=== PATIENT | female | born 1965 | race Caucasian/White ===

== ENCOUNTER 2021-01-01 16:51 | Emergency (ER) | payer BC, OTHER ==
--- OUTSIDE RECORDS SUMMARY | 2021-01-01 16:54 | XMS REPORT | Continuity of Care Document ---
:[address] [facility] t Address [address] [place] [address] Care Team Providers Name Role Phone ETTA Primary Care Physician Unavailable MERLINE Attending Clinician Unavailable Octavio Attending Clinician MERLINE Attending Clinician Unavailable CHELSIE Attending Clinician Unavailable ROSA M Attending Clinician Unavailable TIFFANI Attending Clinician Unavailable ELEANOR ELLSWORTH Attending Clinician Unavailable ERWIN Attending Clinician Unavailable Enrrique Hood Attending Clinician Madison La Attending Clinician ELOINA Attending Clinician Unavailable RUTH Attending Clinician Unavailable EVENS Attending Clinician Unavailable ANA Attending Clinician Unavailable AILEEN Attending Clinician Unavailable Payers Payer Name Policy Type Policy Number Effective Date Expiration Date S ource [place] POS [id number] 2015 00:00:00 Problems Condition Condition Condition Status Onset Resolution Last Treating Co mments Source Name Details Category Date Date Treatment Clinician Date M25.511 - Diagnosis Active 2020-02-25 Memoria PAIN IN 02-15 11:21:00 l RIGHT M25.511 00:01: Jace SHOULDER - PAIN IN 00 RIGHT SHOULDER Active 02/16/2020 MH OPID [place] Gastroesop Problem Active 2020-12-22 M emoria hageal 22:24:38 l reflux [place] disease Gastroesop (disorder) hageal reflux disease (disorder) Active Problem 12/22/2020 [facility] Group, OPID Jace Hyperlipid Problem Active 2020-12-22 M emoria emia 22:24:38 l (disorder) Anthony n Hyperlipid emia (disorder) Active Problem 12/22/2020 Medical Group, MARCOS Bruceann Hypertensi Problem Active 2020-12-22 M emoria ve 22:24:38 l disorder, Jace systemic Hypertensi arterial ve (disorder) disorder, systemic arterial (disorder) Active Problem 12/22/2020 Medical Group, OPID Jace Prediabete Problem Active 2020-01-15 M emoria s 00:41:51 l (finding) [place] Prediabete s (finding) Active Problem 01/15/2020 Medical Group Impaired Problem Active 2020-12-22 Mem oria fasting 22:24:38 l glycaemia Impaired Her rodríguez (disorder) fasting glycaemia (disorder) Active Problem 12/22/2020 Medical Group, MARCOS Mccormick Basal cell Basal cell Problem Active U nivers carcinoma carcinoma ity of of skin of skin [place] Physici ans Dermatofib Dermatofib Problem Active U nivers kathy kathy ity of [place] Physici ans Closed Closed Problem Active Univers displaced displaced ity of fracture fracture [place] of fifth of fifth Physic i metatarsal metatarsal an s bone of bone of right right foot, foot, initial initial encounter encounter Poison marin Poison marin Problem Active U nivers dermatitis dermatitis it y of [place] Physici ans Hand Hand Problem Active Univers dermatitis dermatitis it y of [place] Physici ans History of History of Problem Active U nivers basal cell basal cell it y of carcinoma carcinoma [place] of skin of skin Physici ans Solar Solar Problem Active Univers lentigo lentigo ity of [place] Physici ans Telangiect Telangiect Problem Active U nivers griffin griffin ity of [place] Physici ans Acne Acne Problem Active Univers vulgaris vulgaris ity of [place] Physici ans Nevus of Nevus of Problem Active Unive rs multiple multiple ity of sites of sites of [place] trunk trunk Physici ans Allergies, Adverse Reactions, Alerts Allergy Allergy Status Severity Reaction(s) Onset Inactive Treating Comm ents Source Name Type Date Date Clinician No Known DA Active U 2018-05 [facility]19 [place] [facility] No Known DA Active U 2017-05 [facility] Allergie 2-04 [place] s 00:00[facility]ope [facility] No Known DA Active U 2017-05 [facility] Allergie - [place] s 00:00: Orthope [facility] Family History Family Member Diagnosis Comments Start Date Stop Date Source Mother Family history of Univers y [facility] Skin cancer Physicians Social History Social Habit Start Date Stop Date Quantity Comments Source Social History 2016-05-02 2016-05-02 [facility] 17:12:27 17:12:27 Medications Ordered Filled Start Stop Current Ordering Indication Dosage Frequency Signature Comments Components Source Medication Medication Date Date Medication? Clinician (SIG) Name Name amLODIPine Yes = 1 tab, Mem oria 2.5 mg oral 7-21 PO, Daily, l tablet 13:47: # 90 tab, Anthony n 00 3 Refill(s), Pharmacy: [email or web address] #[id number], covering for Dr Cunningham; MUST follow up amLODIPine Yes = 1 tab, Mem oria 2.5 mg oral 7-14 PO, Daily, l tablet 20:31: # 30 tab, Anthony n 00 0 Refill(s), Pharmacy: [email or web address] #[id number], covering for Dr Cunningham; MUST follow up lansoprazol Yes 30 mg = 1 M emoria e 30 MG 8-26 cap, PO, l Enteric 17:23: Daily, # Anthony n Coated 00 90 cap, 0 Capsule Refill(s), [Prevacid] Pharmacy: [email or web address] #[id number], 172.72, cm, 11/19/18 11:00:00 CDT, Height, 67.727, kg, 11/19/18 11:00:00 CDT, Weight amLODIPine Yes = 1 tab, Mem oria 2.5 mg oral 8-26 PO, Daily, l tablet 17:23: # 90 tab, Anthony n 00 3 Refill(s), Pharmacy: [email or web address] #[id number], covering for Dr Cunningham; MUST follow up, 172.72, cm, 11/19/18 11:00:00 CDT, Height, 67.727, kg, 11/19/18 11:00:00 CDT, Weight amLODIPine Yes = 1 tab, Mem oria 2.5 mg oral 8-17 PO, Daily, l tablet 17:41: # 30 tab, Anthony n 00 1 Refill(s), Pharmacy: [facility] #[id number], covering for Dr Cunningham; MUST follow up, 172.72, cm, 11/19/18 11:00:00 CDT, Height, 67.727, kg, 11/19/18 11:00:00 CDT, Weight amLODIPine 2019-0 Yes = 1 tab, Mem oria 2.5 mg oral 7-15 PO, Daily, l tablet 15:14: # 30 tab, Anthony n 00 0 Refill(s), Pharmacy: [email or web address] #[id number], covering for Dr Cunningham; MUST follow up, 172.72, cm, 11/19/18 11:00:00 CDT, Height, 67.727, kg, 11/19/18 11:00:00 CDT, Weight amLODIPine 2019-0 Yes = 1 tab, Mem oria 2.5 mg oral 6-12 PO, Daily, l tablet 13:02: # 30 tab, Anthony n 00 0 Refill(s), Pharmacy: [email or web address] #[id number], covering for Dr Cunningham; MUST follow up, 172.72, cm, 11/19/18 11:00:00 CDT, Height, 67.727, kg, 11/19/18 11:00:00 CDT, Weight Tretinoin Tretinoin 2018- Yes KARIN apply pea Univers 0.025 % 0.025 % 2-18 KLIMAS sized ity of External External 00:00: M.D. amount to [place] Cream Cream 00 face at Physici bedtime ans Clindamycin Clindamycin 2018- Yes KARIN APPLY Univers Phosphate 1 Phosphate 1 2-18 KLIMAS SPARINGLY ity of % External % External 00:00: M.D. TO FACE [place] Lotion Lotion 00 DAILY Physici ans Triamcinolo Triamcinolo 2019- Yes KARIN Q0.5D APPLY AND Univers ne ne 9-13 KLIMAS RUB IN A ity of Acetonide Acetonide 00:00: M.D. THIN FILM [place] 0.1 % 0.1 % 00 TO Physici External External AFFECTED ans Cream Cream AREAS OF HANDS TWICE DAILY (AM AND PM) NEEDED IF RASH ON HANDS RETURNS amLODIPine Yes 2.5 mg = 1 M emoria 2.5 mg oral 6-26 tab, PO, l tablet 16:08: Daily, # Jace 57 90 tab, 3 Refill(s), Pharmacy: [facility] Mupirocin 2 Mupirocin 2 Yes SIRUNYA Q0.3333D APPLY Univers % External % External 8-16 SILAPUNT SPARINGLY ity of Ointment Ointment 00:00: M.D. TO [place] 00 AFFECTED Physici AREA(S) 3 ans TIMES A DAY lansoprazol Yes 30 mg = 1 M emoria e 30 MG 5-02 cap, PO, l Enteric 16:06: Daily, # Anthony n Coated 00 90 cap, 0 Capsule Refill(s), [Prevacid] Pharmacy: [facility] amLODIPine Yes 2.5 mg = 1 M emoria 2.5 mg oral 5-02 tab, PO, l tablet 16:04: Daily, # [place] 05 90 tab, 3 Refill(s), Pharmacy: [facility] amLODIPine 2016-05 Yes 2.5 mg = 1 M emoria 2.5 mg oral 2-04 tab, PO, l tablet 18:12: Daily, # Jace 13 90 tab, 3 Refill(s), Pharmacy: [facility] amLODIPine 2016-05 No 2.5 mg = 1 M emoria 2.5 mg oral 2-04 tab, PO, l tablet 18:03: Daily, # [place] 00 90 tab, 2 Refill(s), Pharmacy: [facility] [id number] [place] 2016-05 Yes 8 Memori a e 0.008 MG 2-04 microgram l Oral 17:40: = 1 cap, [place] Capsule 00 PO, BID, # [Amitiza] 60 tab, 0 Refill(s) Prevacid Prevacid Yes Univers ity of [place] Physici ans amLODIPine amLODIPine Yes Uni vers Besylate 5 Besylate 5 ity of MG Oral MG Oral [place] Tablet Tablet Physici ans Acyclovir Acyclovir Yes Unive rs CAPS CAPS ity of [place] Physici ans Amitiza Amitiza Yes [facility] of [place] Physici ans Immunizations Ordered Immunization Filled Immunization Date Status Commen ts Source Name Name influenza virus 2017-03-20 Completed [facility] vaccine, 14:34:00 Jace inactivated<sup>1</s up> influenza virus 2016-05-02 Completed [facility] vaccine, inactivated 18:09:00 Herm deysi Vital Signs Vital Name Observation Time Observation Value Comments Source WEIGHT 2020-03-18 10:56:00 75.8 kg HEIGHT 2020-03-17 13:02:00 169.5 cm WEIGHT 2020-03-17 13:02:00 76.8 kg Systolic (mm Hg) 2020-12-14 13:44:00 To rial Jace Diastolic (mm Hg) 2020-12-14 13:44:00 Mem orial [place] Heart Rate 2020-12-14 13:44:00 Memorial [place] Respitory Rate 2020-12-14 13:44:00 Memori al Jace Height 2020-12-14 13:44:00 172.72 cm Memorial [place] Weight 2020-12-14 13:44:00 [facility] [place] BMI Calculated 2020-12-14 13:44:00 Memori al Jace Heart Rate 2018-11-19 16:00:00 Memorial Jace Height 2018-11-19 16:00:00 172.72 cm [facility] [place] Weight 2018-11-19 16:00:00 [facility] Jace BMI Calculated 2018-11-19 16:00:00 Memori al [place] Systolic (mm Hg) 2018-11-19 16:00:00 To rial Jace Diastolic (mm Hg) 2018-11-19 16:00:00 Mem orial Jace Respitory Rate 2018-11-19 16:00:00 Memori al [place] Weight 2017-09-25 15:44:00 Memorial Jace Height 2017-09-25 15:44:00 172.72 cm [facility] Jace BMI Calculated 2017-09-25 15:44:00 Memori al [place] Systolic (mm Hg) 2017-09-25 15:44:00 To rial Jace Diastolic (mm Hg) 2017-09-25 15:44:00 Mem orial [place] Heart Rate 2017-09-25 15:44:00 Memorial Jace Temperature Oral (F) 2017-09-25 15:44:00 98.3 F Kortney Mccormick Heart Rate 2017-04-29 17:30:00 Kortney Bruceann Temperature Oral (F) 2017-04-29 17:30:00 97.9 F [facility] [place] BMI Calculated 2017-04-29 17:30:00 Pascale sawant Jace Systolic (mm Hg) 2017-04-29 17:30:00 To kate Jace Diastolic (mm Hg) 2017-04-29 17:30:00 Mem orial Jace Height 2017-04-29 17:30:00 172.72 cm Kortney Mccormick Weight 2017-04-29 17:30:00 [facility] [place] Procedures Procedure Date / Time Performing Clinician Source Performed Injection procedure for 2020-02-25 17:14:55 To Mccormick shoulder arthrography or enhanced CT/MRI shoulder arthrography [U] XRAY FOOT MIN 3 S 2018-12-18 00:00:00 [facility] RIGHT [id number] Physicians [U] XRAY FOOT MIN 3 S 2018-11-03 00:00:00 [facility] RIGHT [id number] Physicians Fracture of 2018-08-25 05:00:00 Kortney rodríguez foot<sup>1</sup> Mammogram 2017-05-27 06:00:00 [facility] Her rodríguez Colonoscopy 2015-05-27 06:00:00 [facility] Her rodríguez Basal cell carcinoma [facility] He rmann Hysterectomy Memorial Jace Ruptured disk [facility] [place] Plan of Care Planned Activity Planned Date Details Comments Source Future Appointment 2021-05-10 Anjelica FRAZIER [facility] 09:30:00 Rigoberto RICK Encounters Start End Encounter Admission Attending Care Care Encounter Source Date/Time Date/Time Type Type Clinicians Facility Department ID 2020-10-01 Outpatient [facility] [id number] [place] 03:09:21 [facility] 2021-01-03 2021-01-03 Outpatient MUNDOIE MUNDOIE [id number] Memoria 16:15:00 16:15:00 14 l Jace 2020-12-19 2020-12-20 Between nullFlavo [facility] [id number] Memoria 18:40:44 18:40:44 Visit r Primary 15 l Care [facility] 2020-12-19 2020-12-20 Outpatient MHMG MHMG [id number] 13:40:44 13:40:44 15 2020-12-14 2020-12-15 Outpatient nullFlavo [facility]MG [id number] Memoria 13:30:00 04:59:59 r Primary 13 [facility] 2020-12-14 2020-12-14 Outpatient Cunningham, MHMG MHMG [id number] 08:30:00 23:59:59 Marli 13 2020-12-14 2020-12-14 Outpatient MHIE MHIE [id number] Memoria 08:30:00 08:30:00 13 l Jace 2020-12-07 2020-12-09 Phone nullFlavo MG [id number] Memoria 19:31:43 04:59:59 Message r Primary 08 [facility] 2020-12-07 2020-12-08 Outpatient MHMG MHMG [id number] 14:31:43 23:59:59 08 2020-05-11 2020-05-11 [facility] [id number] [facility] [place] [facility] 09:30:00 09:30:00 t; KARIN RICK, [facility] balbina FRAZIER M.D. [facility] Anjelica Procious Physici ans 2020-03-18 2020-03-18 Outpatient GALINA HOLGUIN MDA MDA [id number] 11:28:47 23:59:00 JOE claudio 2020-03-18 2020-03-18 Outpatient GALINA MEDEROS [facility] MDA [id number] 10:51:44 11:35:57 LEILA claudio 2020-03-17 2020-03-17 Outpatient JOSETTE DE JESUS [facility] MDA [id number] 14:45:00 23:59:00 Jose F claudio 2020-03-17 2020-03-17 Outpatient MAR CASANOVA [facility] MDA [id number] 15:57:27 16:24:46 Jose F claudio 2020-03-17 2020-03-17 Outpatient JOSETTE DE JESUS MDA MDA [id number] 13:35:52 14:44:00 Jose F claudio 2020-03-17 2020-03-17 Outpatient MAR CASANOVA MDA MDA [id number] 12:46:19 13:38:43 Jose F o n 2020-03-09 2020-03-09 [facility] ERWIN, [facility] UTP [id number] Univers 14:15:00 14:15:00 t; Mike SALCIDO M.D. [place] Rosario SALCIDO M.D. [facility] 2020-03-04 2020-03-04 Appointsantino ERWIN [facility] UTP [id number] Univers 10:45:00 10:45:00 t; Mike SALCIDO M.D. [place] Rosario SALCIDO M.D. [facility] 2020-02-25 2020-02-26 Outpt Diag nullFlavo [facility] [address] [id number] Memoria 16:12:00 04:59:00 Services r Outpatient 00 l Imaging Jace [place] 2020-02-25 2020-02-25 Outpatient Erwin [facility] [id number] 11:12:00 23:59:00 Orion Osuna 2020-02-10 2020-02-10 Appointsantino HOOD [facility] UTP [id number] Univers 14:30:00 14:30:00 t; Mike SALCIDO M.D. [place] Rosario SALCIDO M.D. [facility] 2020-01-20 2020-01-21 Outpatient nullFlavo [facility] [id number] Memoria 17:20:00 04:59:59 r Internal 12 l Medicine [facility] 2020-01-20 2020-01-20 [place] [id number] 12:20:00 23:59:59 Lo 12 2020-01-20 2020-01-20 Outpatient MHIE MHIE [id number] Memoria 12:20:00 12:20:00 12 l [place] 2020-01-11 2020-01-13 Phone nullFlavo MG [id number] Memoria 18:29:25 04:59:59 Message r Internal 07 l Medicine [facility] 2020-01-11 2020-01-13 Phone nullFlavo MG [id number] Memoria 17:39:30 04:59:59 Message r Internal 06 l Medicine [facility] 2020-01-11 2020-01-12 Outpatient MHMG MG [id number] 13:29:25 23:59:59 07 2020-01-11 2020-01-12 Outpatient MHMG MG [id number] 12:39:30 23:59:59 06 2020-01-08 2020-01-08 [place] [id number] Memoria 17:40:00 17:40:00 Pre-Reg r Internal 11 l [facility] 2020-01-08 2020-01-08 [place] [id number] Memoria 17:40:00 17:40:00 Pre-Reg r Internal 10 [facility] 2020-01-08 2020-01-08 Outpatient MHIE IE [id number] Memoria 12:40:00 12:40:00 10 [facility] 2020-01-08 2020-01-08 Outpatient MHIE MHIE [id number] Memoria 12:40:00 12:40:00 11 [facility] 2020-01-08 2020-01-08 Outpatient Octavio, [facility] [id number] 12:40:00 12:40:00 Marli 11 2020-01-08 2020-01-08 Outpatient Octavio, [facility] [id number] 12:40:00 12:40:00 Marli 10 2019-12-09 2019-12-11 Phone nullFlavo MG [id number] Memoria 15:57:28 04:59:59 Message r Internal 05 [facility] 2019-12-09 2019-12-11 Phone nullFlavo MG [id number] Memoria 14:43:44 04:59:59 Message r Internal 04 [facility] 2019-12-09 2019-12-10 Outpatient MHMG MG [id number] 10:57:28 23:59:59 05 2019-12-09 2019-12-10 Outpatient MHMG MHMG [id number] 09:43:44 23:59:59 04 2019-12-02 2019-12-04 Phone nullFlavo MG [id number] Memoria 12:49:23 04:59:59 Message r Internal 03 [facility] 2019-12-02 2019-12-03 Outpatient MHMG MG [id number] 07:49:23 23:59:59 03 2019-11-06 2019-11-08 Phone nullFlavo MG [id number] Memoria 12:29:07 04:59:59 Message r Internal 02 l Medicine [facility] 2019-11-06 2019-11-07 Outpatient MHMG MHMG [id number] 07:29:07 23:59:59 02 2019-05-13 2019-05-13 Appointmen SHAHNAZ RICK Dermatology [id number] Univers 09:45:00 09:45:00 t; KARIN RICK, [facility] 2019-02-06 2019-03-10 Outpatient [facility] [id number] 13:30:00 11:51:35 2019-02-06 2019-02-06 Appointmen SHAHNAZ DUVALL Dermatology [id number] [facility] [place] [facility] 13:30:00 13:30:00 t; SALLY, [facility] mellissa [facility]. [facility] 2018-12-18 2018-12-18 Appointmen SHAHNAZ MIRANDA Orthopedics [id number] Univers 13:00:00 13:00:00 t; BAEBE at [place] of [place]IN MIRANDA [facility] ABEBE, Medicine Physi [facility] [address] 2018-11-21 2018-11-22 Between nullFlavo MHMG [id number] Memoria 21:56:36 21:56:36 Visit r Internal 07 l Medicine [facility] 2018-11-21 2018-11-22 Outpatient MHMG MG [id number] 16:56:36 16:56:36 07 2018-11-19 2018-11-20 Outpatient nullFlavo MHMG [id number] Memoria 16:00:00 04:59:59 r Internal 09 l Medicine [facility] 2018-11-19 2018-11-19 [place] [id number] 11:00:00 23:59:59 Lo 2018-11-19 2018-11-19 Outpatient MHIE MHIE [id number] Memoria 11:00:00 11:00:00 09 l [place] 2018-11-12 2018-11-12 Ambulatory nullFlavo MHMG [id number] Memoria 20:00:00 20:00:00 Pre-Reg r Internal 08 l Medicine [facility] 2018-11-12 2018-11-12 Outpatient IE [facility] [id number] Memoria 15:00:00 15:00:00 08 l [place] 2018-11-12 2018-11-12 Outpatient [facility], [facility] [id number] 15:00:00 15:00:00 Marli 08 2018-11-03 2018-11-03 Appointsantino MIRANDA [facility] Orthopedics [id number] Univers 09:15:00 09:15:00 t; ABEBE [facility] ty of [facility] ABEBE Medicine Physi ci [employer] [facility] [address] 2018-10-15 2018-10-17 Phone nullFlavo [facility] [id number] Memoria 19:14:50 04:59:59 Message r Internal 01 l Medicine [facility] 2018-10-15 2018-10-16 Outpatient [facility] [id number] 14:14:50 23:59:59 2018-10-09 2018-10-09 [facility] [id number] Univers 10:30:00 10:30:00 [facility] [place] ABEBE, [address] Physic i [facility] 2018-09-16 2018-09-16 Eddie HORNER [facility] Orthopedics [id number] Univers 13:15:00 13:15:00 t; pearl [facility] mellissa HORNER M.D. [place] Rosario POSEY M.D. [facility] 2018-05-12 2018-05-12 Appointsantino P[facility]Z [facility] [id number] Univers 10:00:00 10:00:00 t; PACO PEREZ M.D. ity of [place], [place] M.D. Physiccorina ans 2018-05-12 2018-05-12 Eddie GALLAGHER [facility] Dermatology [id number] Univers 10:00:00 10:00:00 t; CELI GALLAGHER ity of [place], M.D. [place] M.D. Physici ans 2018-04-21 2018-04-21 Appointsantino DUVALL [facility] Dermatology [id number] Univers 09:45:00 09:45:00 t; mellissa ZAVALA M.D. [place] Rosario ZAVALA M.D. ans 2018-01-23 2018-01-23 SHAHNAZ Chaves Dermatology 4 [id number] Univers 10:15:00 10:15:00 t; mellissa ZAVALA M.D. [place] Rosario ZAVALA M.D. ans 2018-01-09 2018-01-09 SHAHNAZ Chaves Dermatology 4 [id number] Univers 10:45:00 10:45:00 t; mellissa ZAVALA M.D. [place] Rosario ZAVALA M.D. [facility] 2017-09-25 2017-09-26 Outpatient nullFlavo MHMG [id number] Memoria 15:40:00 04:59:59 r Internal 07 l Medicine [facility] 2017-09-25 2017-09-25 Outpatient Corazon La MG MHMG [id number] 10:40:00 23:59:59 2017-09-25 2017-09-25 Outpatient Abhinav Corazon MG MHMG [id number] 10:40:00 23:59:59 2017-09-25 2017-09-25 Outpatient MHIE MHIE [id number] Memoria 10:40:00 10:40:00 07 l [place] 2017-08-26 2017-08-26 Ambulatory nullFlavo MHMG [id number] Memoria 15:00:00 15:00:00 Pre-Reg r Internal 06 l Medicine [facility] 2017-08-26 2017-08-26 Outpatient MHIE MHIE [id number] Memoria 10:00:00 10:00:00 06 adolfo [place] 2017-08-26 2017-08-26 Outpatient Corazon La MG MHMG [id number] 10:00:00 10:00:00 Lo 2017-05-13 2017-05-13 SHAHNAZ Shipley Dermatology [id number] Univers 10:00:00 10:00:00 t; PACO PEREZ M.D. ity of [place], [place] M.D. Physici ans 2017-04-29 2017-04-30 Outpatient nullFlavo [facility] [id number] Memoria 17:20:00 05:59:59 r Internal 05 l Medicine [facility] 2017-04-29 2017-04-29 Outpatient Corazon La [facility] [id number] 11:20:00 23:59:59 Lo 2017-04-29 2017-04-29 Outpatient MHIE MHIE [id number] Memoria 11:20:00 11:20:00 05 adolfo [place] 2017-04-22 2017-04-22 Ambulatory nullFlavo [facility] [id number] Memoria 16:00:00 16:00:00 Pre-Reg r Internal 04 l Medicine [facility] 2017-04-22 2017-04-22 Outpatient MHIE MHIE [id number] Memoria 10:00:00 10:00:00 04 adolfo [place] 2017-04-22 2017-04-22 Outpatient Corazon La [facility] [id number] 10:00:00 10:00:00 Lo 2017-03-20 2017-03-20 Outpatient MHIE MHIE [id number] Memoria 09:20:00 09:20:00 02 adolfo [place] 2017-03-20 2017-03-20 Outpatient MHIE MHIE [id number] Memoria 09:00:00 09:00:00 03 adolfo Jace 2016-07-30 2016-07-30 Outpatient MHIE MHIE [id number] Memoria 09:30:00 09:30:00 01 adolfo [place] 2016-05-14 2016-05-14 Appointmen SHAHNAZ PEREZ UTP [id number] Univers 14:00:00 14:00:00 t; PACO PEREZ M.D. ity of [place], [place] M.D. Physici ans 2016-05-02 2016-05-02 Outpatient MHIE MHIE [id number] Memoria 11:15:00 11:15:00 00 adolfo Mccormick 2015-12-16 2015-12-16 Appointmen SHAHNAZ HOOD UTP [id number] Univers 10:00:00 10:00:00 t; Mike SALCIDO M.D. [place] ROBERT, Physici M.D. ans Results Test Description Test Time Test Comments Results Result [facility] e Comments CHEM PANEL 2020-12-14 94 Memorial 14:10:00 [place] CHEM PANEL 2020-12-14 18 Memorial 14:10:00 Jace CHEM PANEL 2020-12-14 0.63 Memorial 14:10:00 [place] CHEM PANEL 2020-12-14 100 Memorial 14:10:00 [place] CHEM PANEL 2020-12-14 115 Memorial 14:10:00 [place] CHEM PANEL 2020-12-14 139 Memorial 14:10:00 [place] CHEM PANEL 2020-12-14 4.6 Memorial 14:10:00 Jace CHEM PANEL 2020-12-14 104 Memorial 14:10:00 Jace CHEM PANEL 2020-12-14 31 Memorial 14:10:00 [place] CHEM PANEL 2020-12-14 9.6 Memorial 14:10:00 [place] CHEM PANEL 2020-12-14 7.1 Memorial 14:10:00 [place] CHEM PANEL 2020-12-14 4.4 Memorial 14:10:00 Jace CHEM PANEL 2020-12-14 2.7 Memorial 14:10:00 Jace CHEM PANEL 2020-12-14 1.6 Memorial 14:10:00 [place] CHEM PANEL 2020-12-14 0.5 Memorial 14:10:00 [place] CHEM PANEL 2020-12-14 64 Memorial 14:10:00 Jace CHEM PANEL 2020-12-14 17 Memorial 14:10:00 [place] CHEM PANEL 2020-12-14 15 Memorial 14:10:00 Jace LIPIDS 2020-12-14 241 Memorial 14:10:00 [place] LIPIDS 2020-12-14 67 Memorial 14:10:00 Jace LIPIDS 2020-12-14 128 Memorial 14:10:00 [place] LIPIDS 2020-12-14 149 Memorial 14:10:00 Jace LIPIDS 2020-12-14 3.6 Memorial 14:10:00 Jace LIPIDS 2020-12-14 174 Memorial 14:10:00 Jace SPECIAL CHEMISTRY 2020-12-14 5.4 Memoria l 14:10:00 [place] [U] XRAY FOOT MIN 2018-10-09 Images [facility] 3 VWS RIGHT [id number] 10:54:00 [place] reported on [facility] this accession number. [facility] Report 2018-01-09 00:00:00 Test Item Value Reference Range Interpretation Comme nts REPORT (test code = REPORT) See Comment [facility]
--- NOTE | 2021-01-01 19:37 | ER ---
Nurse's Notes [facility] Name: Dana Joseph Age: 55 yrs Sex: Female : 1965 Arrival Date: 01/01/2021 Time: 16:56 Bed Waiting Private MD: Diagnosis: Presentation: 01/01 17:27 Chief complaint: Patient states: Left flank pain x 6 days. Coronavirus screen: Client jl7 denies travel out of the [place] in the last 14 days. At this time, the client does not indicate any symptoms associated with coronavirus-19. Ebola Screen: No symptoms or risks identified at this time. Initial Sepsis Screen: Does the patient meet any 2 criteria? No. Patient's initial sepsis screen is negative. Does the patient have a suspected source of infection? No. Patient's initial sepsis screen is negative. Risk Assessment: Do you want to hurt yourself or someone else? Patient reports no desire to harm self or others. Onset of symptoms was December 26, 2020. Care prior to arrival: None. 17:27 Method Of Arrival: Ambulatory [facility] 17:27 Acuity: FAUSTINO 3 jl7 Triage Assessment: 17:29 General: Appears in no apparent distress. uncomfortable, Behavior is calm, cooperative, jl7 appropriate for age. Pain: Complains of pain in left flank. GI: No signs and/or symptoms were reported involving the gastrointestinal system. Historical: - Allergies: 17:29 No Known Allergies; jl7 - PMHx: 17:29 Hypertensive disorder; jl7 - Immunization history:: Adult Immunizations up to date, Client reports receiving the 1st dose of the Covid vaccine, August 2020 J\T\J. - Social history:: Smoking status: Patient denies any tobacco usage or history of. Vital Signs: 17:27 BP 116 / 80; Pulse 93; Resp 17; Temp 98.3; Pulse Ox 97% ; Weight 77.11 kg; Height 5 ft. jl7 8 in. (172.72 cm); Pain 5/10; 17:27 Body Mass Index 25.85 (77.11 kg, 172.72 cm) jl7 ED Course: 16:56 Patient arrived in ED. as 17:29 Triage completed. jl7 17:29 Arm band placed on right wrist. Patient placed in waiting room, Patient notified of jl7 wait time. Administered Medications: No medications were administered Outcome: 19:37 Patient left the ED. jl7 Signatures: Rita Esteban Jahala RN RN jl7 Corrections: (The following items were deleted from the chart) 17 17:29 Allergies: Aspirin; 7 jl7 17:29 PMHx: None; Ashlee jl7
[2021-01-01 19:40] VITALS: BP 116/80; TEMP 98.3; O2SAT 97
== END 2021-01-01 19:37 | disposition left against medical advice (07) ==
LOC: ER 16:51
DX: Z53.21 Procedure and treatment not carried out due to patient leaving prior to being seen by health care provider (principal)
CPT/HCPCS: 99281